=== PATIENT | female | born 1985 | race Caucasian/White ===

== ENCOUNTER 2020-02-19 10:15 | Inpatient (IN) | payer OTHER ==
[~2020-02-19] VITALS: Ht 165.1 cm; Wt 81.7 kg
--- NOTE | ~2020-02-19 | OR ---
[facility] [address], [place] [address] Draft DATE OF OPERATION: 03/03/2020 SURGEON: Lorene Bella MD MANAGER HARBOR: Neil Luna MD. PREOPERATIVE DIAGNOSIS: Uterovaginal prolapse. POSTOPERATIVE DIAGNOSIS: Uterovaginal prolapse. PROCEDURE: Total vaginal hysterectomy, bilateral salpingectomy, uterosacral cuff suspension, cystoscopy, rectocele repair. ESTIMATED BLOOD LOSS: 250 mL. DRAINS: Wray catheter. ANESTHESIA: Spinal with IV sedation and LMA. INDICATIONS AND FINDINGS: The patient is a 34-year-old female 2, para 1, ectopic 1, who has been having increasing problems with pelvic pressure and discomfort. She was found to have significant uterine descensus as well as a rectocele. She also had a cystocele. The uterus itself was normal size. The tubes and ovaries were normal. After completion of the hysterectomy, the cystocele had resolved. DESCRIPTION OF PROCEDURE: The patient was prepped and draped in the dorsal lithotomy position. A weighted speculum was placed in the anterior and posterior lips of the cervix were grasped with single-tooth tenaculums. The cervix was then injected with 1% lidocaine with 1:200,000 epi. Following this, the posterior cul-de-sac was entered sharply and the Redway-Neck speculum placed into the posterior cul-de-sac. The uterosacral ligaments were grasped bilaterally with curved Z clamps, divided with the Barron scissors and suture ligated with PATIENT NAME: SAL CALDERÓN OPERATIVE REPORT DATE OF : [birth year] REPORT #: [id number] PHYSICIAN: LORENE BELLA MD PCP: NO PRIMARY CARE PHYSICIAN REPORT IS CONFIDENTIAL AND NOT TO BE RELEASED WITHOUT AUTHORIZATION [facility] [address], [place] [address] Draft 0 Vicryl. This was done bilaterally. The vaginal mucosa surrounding the cervix was then incised with a knife, followed by sharp dissection. The anterior cul-de-sac was then entered at this time. Following this, serial bites were taken in the cardinal ligament areas on the lower uterine vessel areas again taking care to incorporate both the anterior and posterior leaves of the peritoneum. These were divided and suture ligated with 0 Vicryl. Following this, a bite was taken on each side in the lower portion of the broad ligament. These were incised and sutured with 0 Vicryl. The remaining broad ligament pedicles on each side could then be grasped and the specimen removed. This was followed by free ties of 0 Vicryl followed by suture ligatures of 0 Vicryl. Following this, the tubes were identified and grasped with Mark clamps. These were clamped across with a curved Z clamps and excised. This was followed by free tie of the 0 Vicryl. This was done bilaterally. Following this, the cuff was examined and bleeding points on the lateral aspects were controlled with [id number] sutures of 0 Vicryl. The Redway-Neck speculum was replaced with a shorter speculum. The uterosacral ligaments on each side were identified and sutured with 0 Ethibond. There was a proximal suture to the cuff and then a more distal suture to the cuff. Two were placed on each side. Following this, these sutures were sutured to both the anterior cuff and the posterior cuff with the proximal sutures placed lateral on the cuff and the distal sutures placed central to the cuff. These were all placed and then tied. Following this, cystoscopy was done. The Wray catheter was removed. She had received IV fluorescein. The 30-degree scope was used and the bladder evaluated. There was no evidence of any bladder injury at all. A free egress of urine was seen from both of the ureteral orifices. Following this, the bladder was drained and the cystoscopy complete. The Wray catheter was replaced. The vaginal cuff was then closed with a running locking stitch of 0 Vicryl. The cystocele had essentially resolved at this point. The rectocele was then done. A triangle of tissue was removed from the perineal body. The vaginal mucosa was then undermined and incised in the midline to the apex of the vagina. The vaginal mucosa was from the underlying tissue with a combination of blunt and sharp dissection. repair was then done using 2-0 Vicryl. Repairing of the fascia was done. Following this, the vaginal mucosa was trimmed a large amount because of the redundancy. The vaginal mucosa was then closed with a running stitch from the apex of the vagina to the hymenal ring. Additional [id number] were required near the apex in the midportion to control bleeding. The perineal body was rebuilt with interrupted sutures of 2-0 Vicryl. The posterior fourchette was recreated with a running suture of the 2-0 Vicryl. The skin incision was closed with a subcuticular suture of 2-0 Vicryl. There was good length and caliber to the vagina. All sponge and needle counts were correct. A good hemostasis was noted. The procedure was then terminated after packing the vagina with the Premarin-coated gauze. PATIENT NAME: SAL CALDERÓN OPERATIVE REPORT DATE OF : [birth year] REPORT #: [id number] PHYSICIAN: LORENE BELLA MD PCP: NO PRIMARY CARE PHYSICIAN REPORT IS CONFIDENTIAL AND NOT TO BE RELEASED WITHOUT AUTHORIZATION [address] [place], [place] [address] Draft Lorene Bella MD PJW/MODL /[id number] cc: Neil Luna MD Copies: NEIL LUNA MD ~ PATIENT NAME: SAL CALDERÓN OPERATIVE REPORT DATE OF : [birth year] REPORT #: [id number] PHYSICIAN: LORENE BELLA MD PCP: NO PRIMARY CARE PHYSICIAN REPORT IS CONFIDENTIAL AND NOT TO BE RELEASED WITHOUT AUTHORIZATION
[~2020-02-19 10:15] MED LIST: EXTRA-VIRT PLU1 EACH PO; PROZAC10 MG PO; ZANTAC150 MG PO
--- NOTE | 2020-03-03 10:50 | NUR ---
PT ARRIVED TO FLOOR. PT ALERT AND ORIENTS. PT STATES THAT SHE FEELS LIKE SHE CANT MOVE HER LEGS BUT DOES HAVE FEELING IN HER LEGS (PT HAD A SPINAL ANESTHESIA)
--- NOTE | 2020-03-03 11:03 | NUR ---
[facility] SLEEPY WITH NO C/O'S. 1000 PT AWAKE TALKING TO STAFF. 1015 RESTING. REU. 1030 C/O ITCHY FACE. 1040 NUBAIN GIVEN SUB Q IN R ARM. 1050 TO MED SURG ROOM 115. CALL LIGHT GIVEN. REPORT GIVEN TO RN.
--- NOTE | 2020-03-03 11:49 | NUR ---
PT C/O NAUSEA MEDICATED WITH 4MG ZOFRAN AT THIS TIME, EXPLAINED TO SLOW DOWN ON HER WATER INTAKE. ICE CHIPS GIVEN
--- NOTE | 2020-03-03 11:50 | NUR ---
IN PTS ROOM TO GET VITALS PT THINKS HER NAUSEA WAS FROM DRINKING WATER TOO FAST. PT STATES THAT SHE WILL STICK TO ICE CHIPS AT THIS TIME. PT HAS NO OTHER NAUSEA OR COMPLIANTS AT THIS TIME
--- NOTE | 2020-03-03 13:58 | NUR ---
Patient takes no home medications
--- NOTE | 2020-03-03 14:38 | NUR ---
pt put dog control officer light to notify staff that she is still itchy. provided pt with 12.5mg of benadryl at this time
--- NOTE | 2020-03-03 18:27 | NUR ---
PT REQUESTING PAIN MEDS AT THIS TIME. SHE STATES PAIN IS AT 2/10. DISCUSED WITH PT THAT WE SHOULD START WITH MOTRIN AND IF SHE GETS VERY PAINFUL OVERNIGHT THEN SHE CAN GO TO MORPHINE. PT AGREEABLE TO THIS PLAN
--- NOTE | 2020-03-03 18:42 | NUR ---
PT HAD A GOOD DAY AFTER SURGERY. TOWARDS END OF SHIFT PT STARTED GETTING SLIGHTLY PAINFUL. PT AGREEABLE TO START WITH MOTRIN. PT DID DANGLE LEGS AND TOLERATED WELL, PT STILL FEELING THE EFFECTS OF ANESTHIA SO SHE DID NOT STAND. PTS VITALS LOOKED GOOD WITH ADEQUATE URINE OUTPUT IN A FELOTN CATHETER
--- NOTE | 2020-03-03 20:38 | NUR ---
PT UP TO BRUSH TEETH, BACK TO BED. IV CDI, WNL, FLUSHED WELL. IV FLUIDS INFUSING PER ORDER. ABD TENDER, NO EDEMA. SCDs ON. ASSESSMENT, VS AND I&O COMPLETED. SISTER IN ROOM. NO N/V REPORTED PAIN /10, PT DENIES NEED FOR INTERVENTION. SEVERAL SCATTERED BRUISES NOTED ON BODY IN VARIOUS STAGES OF HEALING. LUNGS CLEAR. NO OTHER NEEDS AT THIS TIME. CALL LIGHT IN REACH.
--- NOTE | 2020-03-03 23:04 | NUR ---
PT STATES SHE HAS 6/10 LOWER ABD PAIN. PRN PAIN MED PROVIDED. IV FLUSHED WELL. NO OTHER NEEDS. CALL LIGHT IN REACH.
--- NOTE | 2020-03-04 00:09 | NUR ---
PT RESTING IN BED, EYES CLOSED. RR EVEN, UNLABORED. IV FLUIDS INFUSING PER ORDER. PURNIMA WNL. CALL LIGHT IN REACH.
--- NOTE | 2020-03-04 02:23 | NUR ---
ASSESSMENT, VS AND I&O COMPLETED. ABD SOFT, TENDER, BOWEL TONES ACTIVE. SCANT VAGINAL BLOOD IN BRIEFS, RED. LUNGS CLEAR. PT TAKING A BREAK FROM SCDs. IV FLUIDS INFUSING PER ORDER. NO OTHER NEEDS. CALL LIGHT IN REACH.
--- NOTE | 2020-03-04 03:52 | NUR ---
PT RESTING IN BED, EYES CLOSED. RR EVEN, UNLABORED. IV FLUIDS INFUSING PER ORDER. CALL LIGHT IN REACH.
--- NOTE | 2020-03-04 05:01 | NUR ---
PT HAS SLEPT WELL MOST THE NIGHT. PAIN MANAGED WITH PRN PAIN MEDS. VSS, UOS. IV WNL, FLUSHED WELL. SCANT, RED VAGINAL DISCHARGE. PT TOLERATED MEDICATIONS WELL, NO NAUSEA OR ITCHING THIS SHIFT. PT HAS BEEN UP TO AMBULATE IN ROOM, NO DIZZINESS REPORTED. SISTER IN ROOM ALL NIGHT. PT TOLERATED SNACKS AND FLUIDS WELL.
--- NOTE | 2020-03-04 06:39 | NUR ---
PT VS AND I&O COMPLETED. PT REQUESTS FELTON BE REMOVED. FELTON REMOVED WNL, PT AMBULATING WELL. NO OTHER NEEDS AT THIS TIME. CALL LIGHT IN REACH.
--- NOTE | 2020-03-04 07:54 | NUR ---
0711: Pt resting in her bed and states her pain is a 5/10 and she states a 7 is tolerable. Pt ordering breakfast at this time. Call bain within reach. Report received from Nasra GRANGER.
--- NOTE | 2020-03-04 09:50 | NUR ---
Pt stating she has pain a 6/10 and was medicated as ordered. Pt voided and had a post void scan of 3 ml. Pt now getting into the shower and states she will walk after her shower. Jada- pad noted to have a scant amount of ss draiange noted with no s/s of infection. Pt's sister remains in the room with her at this time. See assessment.
--- NOTE | 2020-03-04 10:57 | NUR ---
PT HAS VOIDED SEVERAL TIMES SINCE HER FELTON WAS DC'D AND THE MOST RECENT POST VOID VOLUME WAS 3ML. PT HAS SHOWERED AND AMBULATED IN THE HALLS. AFTER WALKING SHE STATES HER PAIN IS A 5 WHICH IS TOLERABLE TO HER. SHE DOES COMPLAIN OF SOME ITCHING WITH RASH OR REDDNESS NOTED AND SHE WAS MEDICATED WITH BENADRYL ORDERED.
--- NOTE | 2020-03-04 11:00 | NUR ---
PATIENT WALKED A 1 LAP ON MED. SURG. THIS MORNING. SHE ALSO TOOK A SHOWER. FAMILY MEMBER IN ROOM.
--- NOTE | 2020-03-04 11:46 | NUR ---
Pt voided 290 ml of light pink colored urine and was bladder scanned for 3 ml post void.
[2020-03-04] MEDS ORDERED: IBU800 MG PO (13:08)
[2020-03-04] MEDS ORDERED: NORCO 5-325 TA1 EACH PO (13:09)
[2020-03-04] MEDS ORDERED: ZOFRAN8 MG PO (13:10)
--- NOTE | 2020-03-04 13:10 | NUR ---
Pt states her pain is a 5/10 and requested pain medications. See emar.
[2020-03-04] MEDS ORDERED: SENOKOT-S TABL1 EACH PO (13:18)
--- NOTE | 2020-03-04 13:20 | NUR ---
Pt dressed and preparing for dc. Denies needs. Sister in the room.
--- NOTE | 2020-03-05 16:42 | PATH ---
[facility] [address], [place] [address] Signed SPECIMEN(S): A UTERUS, CERVIX AND TUBES SPECIMEN SOURCE: A. UTERUS, CERVIX AND TUBES CLINICAL HISTORY: Incomplete uterovaginal prolapse. FINAL PATHOLOGIC DIAGNOSIS: Uterus, cervix, and bilateral fallopian tubes, hysterectomy and bilateral salpingectomy: - Cervix: No histopathologic abnormality. - Endometrium: Proliferative endometrium. - Myometrium and serosa: Focal subserosal adenomyosis. - Fallopian tubes: No histopathologic abnormality. - Negative for atypia or malignancy. NAL:cml:C2NR MICROSCOPIC EXAMINATION: Histologic sections of all submitted blocks are examined by light microscopy. An immunohistochemical stain (with appropriately staining controls) for CD10 highlights the endometrial type stroma surrounding the focal area of adenomyosis in the subserosal portion of the myometrium. These findings, together with the gross examination, support the pathologic diagnosis. GROSS DESCRIPTION: The specimen, labeled "AW," and designated on the requisition "uterus and cervix and bilateral tubes," is received in formalin and consists of 80 g, uterus with attached cervix and two detached fimbriated fallopian tube segment. The uterus with attached cervix measures 8.9 x 4.2 x 3.3 cm. The uterine serosa is brasher, brasher, glistening. The ectocervical tissue is smooth to finely wrinkled, brasher, and occupies a 4.0 x 4.0 cm area. The external loss is oval, patent, and 1.2 cm in diameter. The internal loss is patent and the cervical stroma is grossly unremarkable. The triangular endometrial cavity is 3.8 x 1.6 cm. The brasher-red endometrium is up to 0.1 cm thick. The brasher, rubbery myometrium is up to 2.0 cm thick and without a discrete mass/lesion. The first fimbriated fallopian tube is 3.2 cm long, 0.6 cm in diameter, brasher, has a patent lumen, inked blue, and grossly unremarkable. The second PATIENT NAME: SAL CALDERÓN PATHOLOGY DATE OF : 89 REPORT #: [id number] PHYSICIAN: SAUMYA PATHOLOGY PCP: NO PRIMARY CARE PHYSICIAN REPORT IS CONFIDENTIAL AND NOT TO BE RELEASED WITHOUT AUTHORIZATION [facility] [address], [place] [address] Signed fimbriated fallopian tube is 4.1 cm long, 0.7 cm in diameter, brasher, has a patent lumen, and has multiple clear fluid-filled paratubal cysts from less than 0.1 up to 0.4 cm in greatest dimension. Tax Evaluator sections are submitted as follows: A1-anterior cervix A2-posterior cervix A3-anterior uterine wall X0-Y0-dlizrmukh uterine wall A6 fallopian tubes AI (under the direct supervision of a pathologist) The Gross Description was prepared using a voice recognition system. The report was reviewed for accuracy; however, sound-alike word errors, addition and/or deletions may occur. If there is any question about this report, please contact Client Services. ADDITIONAL NOTES: Immunohistochemical and/or in situ hybridization studies were performed on this case with the appropriate positive controls that react as expected. This test was developed and its performance characteristics determined by [facility]. It has not been cleared or approved by the U.S. Food and Drug Administration. The FDA has determined that such clearance or approval is not necessary. This test is used for clinical purposes. It should not be regarded as investigational or for research. [facility] is certified under the Clinical Laboratory Improvement Amendments of 1988 (CLIA) as qualified to perform high complexity clinical laboratory testing. PERFORMING LABORATORY: The technical component was performed by [facility], [address] [place] [id number] (Quality Improvement Consultant: Stephanie Abrams MD; CLIA# [id number]) Professional interpretation was performed by [facility], [address] [place] [address] (CLIA# [id number]). Diagnostician: Kate Mcclure MD Pathologist Electronically Signed 03/05/2020 Copies: PATIENT NAME: SAL CALDERÓN PATHOLOGY DATE OF : 89 REPORT #: [id number] PHYSICIAN: SAUMYA PATHOLOGY PCP: NO PRIMARY CARE PHYSICIAN REPORT IS CONFIDENTIAL AND NOT TO BE RELEASED WITHOUT AUTHORIZATION [facility] [address] [facility] [place] [address] Signed ~ PATIENT NAME: SAL CALDERÓN PATHOLOGY DATE OF : [birth year] REPORT #: [id number] PHYSICIAN: SAUMYA MATHEW PCP: NO PRIMARY CARE PHYSICIAN REPORT IS CONFIDENTIAL AND NOT TO BE RELEASED WITHOUT AUTHORIZATION
== END 2020-03-04 14:10 | disposition home or self-care (01) | DRG 743 ==
LOC: DSVR 03-03 05:40 → MS 03-03 06:45
PROVIDERS: ADMIT Obstetrics & Gynecology
PROC: 0JQC0ZZ Repair Pelvic Region Subcutaneous Tissue and Fascia, Open Approach (ICD-10-PCS; principal; 2020-03-03 06:45)
PROC: 0USGXZZ Reposition Vagina, External Approach (ICD-10-PCS; principal; 2020-03-03 06:45)
PROC: 0UT97ZZ Resection of Uterus, Via Natural or Artificial Opening (ICD-10-PCS; principal; 2020-03-03 06:45)
PROC: 0UT77ZZ Resection of Bilateral Fallopian Tubes, Via Natural or Artificial Opening (ICD-10-PCS; principal; 2020-03-03 06:45)
DX: N81.2 Incomplete uterovaginal prolapse (principal); N80.1 Endometriosis of ovary; F32.9 Major depressive disorder, single episode, unspecified; Z79.899 Other long term (current) drug therapy; Z88.8 Allergy status to other drugs, medicaments and biological substances; Z87.891 Personal history of nicotine dependence
CPT/HCPCS: 00944; 36415; 80048; 85025; 94762; C1762; J0694; J1100; J1200; J1644; J1885; J2001; J2250; J2270; J2274; J2300; J2405; J2704; J2765; J3010; J7121